=== PATIENT | female | born 1970 | race Caucasian/White ===

== ENCOUNTER 2018-03-29 18:56 | Outpatient (CLI) ==
--- NOTE | 2018-03-30 08:31 | DI ---
EXAM: Right foot; PA, lateral, and oblique views HISTORY: Right foot and ankle pain, no obvious injury COMPARISON: Ankle radiographs from same day. FINDINGS: There is no acute fracture or dislocation. Joint spaces and alignment is maintained. Dors al foot soft tissue swelling is present. OPINION: No acute osseous abnormality of the foot. Dorsal foot soft tissue swelling.
--- NOTE | 2018-03-30 08:33 | DI ---
EXAM: Right ankle; AP, lateral, and oblique views HISTORY: Ankle pain, no obvious injury COMPARISON: Foot radiographs from same day. FINDINGS: There is no acute fracture or dislocation. Joint spaces and alignment are maintained. The ankle mortise is maintained. The talar dome has a normal contour. Mild ankle soft tissue swelling is present. IMPRESSION: No acute osseous abnormality of the ankle. Mild ankle soft tissue swelling.
== END 2018-03-29 18:57 | disposition home or self-care (01) ==
LOC: RAD 18:56
PROVIDERS: ATTEND Nurse Practitioner
DX: M25.571 Pain in right ankle and joints of right foot (principal)